=== PATIENT | female | born 1985 | race Caucasian/White ===

== ENCOUNTER 2021-12-14 18:04 | Emergency (ER) | payer BC ==
[~2021-12-14] VITALS: Ht 165.1 cm; Wt 125.0 kg
[2021-12-14] MEDS ORDERED: PHEN-239 PO (18:13)
[2021-12-14] MEDS ORDERED: METF-839 PO (18:13)
[2021-12-14] MEDS ORDERED: LEXA1TAB2 PO (18:13)
[2021-12-14] MEDS ORDERED: FAMOTIDINE 20MG/2ML VIAL IVP ONE (18:35)
[2021-12-14] MEDS ORDERED: methylPREDNISolone 125MG 2ML VIAL IV ONE (18:35)
[2021-12-14] MEDS ORDERED: NS 1,000 ML IV ONE (18:35)
[2021-12-14 19:01] LABS: BASO % 0.4 % (0.0-1.0); EOS # 0.2 10^3/uL (0.0-0.5); EOS % 2.4 % (0.0-3.0); HEMATOCRIT 44.1 % (36.0-47.0); HEMOGLOBIN 14.9 g/dl (12.0-15.5); LYMPH # 4.1 10^3/uL (1.5-5.0); LYMPH % 43.5 % (24.0-44.0); MEAN CORPUSCULAR HEMOGLOBIN 28.8 pg (27.0-33.0); MEAN CORPUSCULAR HGB CONC 33.8 g/dl (32.0-36.5); MEAN CORPUSCULAR VOLUME 85.3 fl (80.0-96.0); MONO # 0.4 10^3/uL (0.0-0.8); NEUTROPHILS # 4.7 10^3/uL (1.5-8.5); NEUTROPHILS % 49.2 % (36.0-66.0); PLATELET COUNT, AUTOMATED 302 10^3/uL (150-450); RED BLOOD COUNT 5.17 10^6/uL (4.00-5.40); WHITE BLOOD COUNT 9.5 10^3/uL (4.0-10.0)
[2021-12-14 19:34] LABS: ALBUMIN 3.5 GM/DL (3.2-5.2); ALT/SGPT 23 U/L (12-78); BILIRUBIN,DIRECT < 0.1 MG/DL (0.0-0.2); BILIRUBIN,TOTAL 0.2 MG/DL (0.2-1.0); BLOOD UREA NITROGEN 13 MG/DL (7-18); C REACTIVE PROTEIN QUANTITATIV 0.92 MG/DL (0.00-0.30); CALCIUM LEVEL 9.3 MG/DL (8.5-10.1); CARBON DIOXIDE LEVEL 26 MEQ/L (21-32); CHLORIDE LEVEL 107 MEQ/L (98-107); COMPLEMENT C4 27 MG/DL (10-40); GLOMERULAR FILTRATION RATE > 60.0 (>60); GLUCOSE, FASTING 106 MG/DL (70-100); POTASSIUM SERUM 3.8 MEQ/L (3.5-5.1); SODIUM LEVEL 139 MEQ/L (136-145); TOTAL PROTEIN 7.2 GM/DL (6.4-8.2)
[2021-12-14 19:50] LABS: ERYTHROCYTE SEDIMENTATION RATE 6 mm/hr (0-20)
[2021-12-14] MEDS ORDERED: PRED20TA PO (20:32)
[2021-12-14] MEDS ORDERED: PEPC1TAB5 PO (20:32)
[2021-12-14 20:45] VITALS: BP 155/72
[2021-12-22 19:07] LABS: C1 ESTER INHIB. NON FUNCTIONAL 26 mg/dL (21-39); COAGULATION FACTOR XII ACTIVIT 141 % (50-150)
== END 2021-12-14 21:03 | disposition home or self-care (01) ==
LOC: M ED 18:04
DX: L29.9 Pruritus, unspecified (principal); T78.3XXA Angioneurotic edema, initial encounter; E28.2 Polycystic ovarian syndrome; Z88.2 Allergy status to sulfonamides; Z79.84 Long term (current) use of oral hypoglycemic drugs; Z79.899 Other long term (current) drug therapy
CPT/HCPCS: 80048; 80076; 83519; 85025; 85280; 85652; 86140; 86160; 93041; 94760; 96361; 96374; 96375; 99291; J2930